=== PATIENT | female | born 1955 | race Caucasian/White ===

== ENCOUNTER 2023-09-29 10:09 | Emergency (ER) | payer BC, SELFPAY ==
[2023-09-29 10:22] VITALS: BP 163/92
--- NOTE | 2023-09-29 11:08 | ED.GENMED ---
History of Present Illness
General
Chief Complaint: Fall
Time Seen by Provider: 09/29/23 10:56
Travel History
Have you had any contact with someone who has COVID-19?: No
Do you have any symptoms of coronavirus? Fever > 100 degrees, chills, cough, shortness of breath, sore throat, loss of taste or smell, muscle aches, or headache?: No
History of Present Illness
History of Present Illness:
67-year-old female presenting with department for evaluation of right ankle and right knee pain after slipping and falling on ice today. She was able to bear weight with pain.
Past History
Past History
ED Past Medical History: Cancer (uterine/cervical 2017, s/p chemo/XRT finished 12/02), HTN, Hypercholesterolemia, NIDDM and Hypothyroidism
ED Past Surgical History: Gynecological (radical hyster 2017)
Social History
Tobacco: Non-smoker
Personal:
Living: with family
Employment: Employed
Review of Systems
Review of Systems
Allergies reviewed?: Yes
All Other Systems: ROS reviewed and negative except as documented in HPI and ROS
Phy Exam
Physical Exam
Physical Exam:
GEN: Well appearing, NAD, WDWN
HEENT: Oral mucosa moist, no scleral icterus
Cardiac: Regular rate
Lung: No respiratory distress, no tachypnea
MSK: No gross deformity or injuries, reproducible tenderness to the right lateral malleolus with no gross deformity, normal right ankle and right knee range of motion. There is minimal tenderness to the right lateral knee at the fibular head with
no deformity
Skin: Good color, no pallor or jaundice, no rashes
Neuro: AO x3, moves all extremities freely
Psych: Calm, cooperative
Course
Orders/Labs/Results
Orders:
Orders
09/29/23 11:07
CR Ankle - Right Min 3 Views * Urgent
Comment:
Reason For Exam: fall injury
CR Knee- Right 4 Or More View* Urgent
Comment:
Reason For Exam: fall
09/29/23 11:29
Acetaminophen [Tylenol] 650 mg PO NOW STA
Ibuprofen [Motrin] 400 mg PO NOW STA
Vital Signs
Initial and Last Documented VS:
Initial Vital Signs
Temp Pulse Resp BP Pulse Ox
98.4 F 92 18 163/92 97
09/29/23 10:22 09/29/23 10:22 09/29/23 10:22 09/29/23 10:22 09/29/23 10:22
Last Documented Vital Signs
Temp Pulse Resp BP Pulse Ox
98.4 F 92 18 163/92 97
09/29/23 10:22 09/29/23 10:22 09/29/23 10:22 09/29/23 10:22 09/29/23 10:22
MDM/Problems Addressed
MDM/Problems Addressed:
Support of care discussed with the patient X-rays are independently interpreted by me showing no acute osseous abnormalities.
*Critical Care Note
Total Time (30-74mins, 75-104mins- exclusive of procedures): Not Applicable
ED Attending Note
-
Portions of this chart may have been created with voice recognition software.� Occasional wrong word or��sound alike� substitutions may have occurred due to the inherent limitations of voice recognition software.
Discharge Plan
Departure
Patient Disposition: Home (Routine Discharge)
Date of Disposition: 09/29/23
Time of Disposition: 12:09
Patient with high blood pressure during this ER visit?: No
Discharge Problem:
Right ankle sprain
Instructions: Ankle Sprain (DC)
Prescriptions:
No Action
metformin 500 MG tablet
500 mg PO BID
valsartan 80 MG tablet
80 mg PO DAILY
metoprolol tartrate 50 MG tablet
25 mg PO BID
triamterene 50 MG capsule
50 mg PO Q48H
ondansetron 4 MG tablet,disintegrating
4 mg PO TIDPRN PRN (Reason: nausea/vomiting) Qty: 8 0RF
tamsulosin 0.4 MG capsule
0.4 mg PO DAILY Qty: 14 0RF
cefuroxime axetil 500 mg tablet
500 mg PO BID 10 Days Qty: 20 0RF
simvastatin 80 mg Tablet
80 mg PO DAILY
Referrals:
Nataliia Graff MD [Family Provider] -
Interventions
Interventions:
*Risk Screen - Suicide Last Done: 09/29/23 10:22
*General Assessment Last Done: 09/29/23 10:22
*Neglect/Abuse Screening Last Done: 09/29/23 10:22
*Nursing Disposition Last Done: 09/29/23 12:30
ED-Musculoskeletal Assessment Last Done: 09/29/23 11:03
ED-Skin Assessment Last Done: 09/29/23 11:03
Discharge Date and Time
Discharge Date/Time: 09/29/23 12:30
[2023-09-29] MEDS: TYLENOL 650 MG PO (11:46)
[2023-09-29] MEDS: MOTRIN 400 MG PO (11:46)
== END 2023-09-29 12:30 | disposition home or self-care (01) ==
LOC: EMR 10:09
PROVIDERS: EMERGENCY PHYSICIAN Emergency Medicine; FAMILY PHYSICIAN Internal Medicine
DX: S93.401A Sprain of unspecified ligament of right ankle, initial encounter (principal); W00.0XXA Fall on same level due to ice and snow, initial encounter; M25.561 Pain in right knee; I10 Essential (primary) hypertension; E78.00 Pure hypercholesterolemia, unspecified; E11.9 Type 2 diabetes mellitus without complications; E03.9 Hypothyroidism, unspecified; Z79.84 Long term (current) use of oral hypoglycemic drugs; Z85.42 Personal history of malignant neoplasm of other parts of uterus; Z85.41 Personal history of malignant neoplasm of cervix uteri; Z92.3 Personal history of irradiation; Z92.21 Personal history of antineoplastic chemotherapy
CPT/HCPCS: 99283; 73564; 73610